=== PATIENT | female | born 1975 ===

== ENCOUNTER 2017-02-10 20:16 | Observation (INO) | payer OTHER ==
[2017-02-10 20:46] VITALS: BP 133/90; PULSE 86; RESP 18; TEMP 97.8; O2SAT 98
[2017-02-10] MEDS ORDERED: Sodium Chloride 0.9% 1,000 ML IV STA (21:03)
--- NOTE | 2017-02-10 21:15 | ED PDOC ---
HPI: General Adult Time Seen by Provider: 02/10/17 20:47 Chief Complaint (Nursing): Abdominal Pain History Per: Patient Additional Complaint(s): Pt. states since 1500 today she developed a constant progressively worsening RLQ abdominal pain. Reports also feeling nauseous but no vomiting. Denies fever , chest pain, dysuria, hematuria, fever, diarrhea, constipation. Last BM was this morning and normal. Past Medical History Reviewed: Historical Data, Nursing Documentation, Vital Signs Vital Signs: Last Vital Signs Temp 97.8 F 02/10/17 20:41 Pulse 86 02/10/17 20:41 Resp 18 02/10/17 20:41 BP 133/90 02/10/17 20:41 Pulse Ox 98 02/11/17 01:02 - Surgical History Surgical History: Cholecystectomy Other surgeries: gastric bypass - 11 years ago - Family History Family History: States: No Known Family Hx - Allergies Allergies/Adverse Reactions: Allergies Allergy/AdvReac Type Severity Reaction Status Date / Time Penicillins Allergy RASH Verified 02/10/17 20:41 Review of Systems ROS Statement: Except As Marked, All Systems Reviewed And Found Negative Gastrointestinal: Positive for: Nausea, Abdominal Pain Physical Exam - Reviewed Nursing Documentation Reviewed: Yes Vital Signs Reviewed: Yes - Physical Exam Appears: Positive for: Well, Non-toxic, No Acute Distress Head Exam: Positive for: ATRAUMATIC, NORMAL INSPECTION, NORMOCEPHALIC Skin: Positive for: Normal Color, Warm. Negative for: Rash Eye Exam: Positive for: EOMI, Normal appearance, PERRL ENT: Positive for: Normal ENT Inspection Neck: Positive for: Normal, Painless ROM Cardiovascular/Chest: Positive for: Regular Rate, Rhythm Respiratory: Positive for: CNT, Normal Breath Sounds Gastrointestinal/Abdominal: Positive for: Normal Exam, Bowel Sounds, Soft, Tenderness (RLQ abdominal tenderness). Negative for: Organomegaly, Mass, Distended, Rebound Back: Positive for: Normal Inspection. Negative for: L CVA Tenderness, R CVA Tenderness Extremity: Positive for: Normal ROM Neurologic/Psych: Positive for: Alert, Oriented - Laboratory Results Result Diagrams: 02/10/17 21:53 02/10/17 21:53 - ECG O2 Sat by Pulse Oximetry: 98 - Progress ED Course And Treament: Labs ordered. Morphine 2mg IV, zofran 4mg IV, IV NS bolus given. ED OBSERVATION Discharge: Yes Date of observation admission: 02/10/17 Time of observation admission: 21:15 - Observation admission statement Patient is being placed in observation because:: Abdominal pain - Progress Note Progress Note: 02/11/17 23:15 Pt. reports good relief of pain. 02/11/17 01:00 CT abd/pelvis: no acute findings. Case d/w Dr. Scott prior to discharge and agrees with plan. Pt. still without any pain. Discussed results with patient and states she will return to ED if pain returns or worsens. Disposition - Clinical Impression Clinical Impression: Abdominal pain in female - Patient ED Disposition Is Patient to be Admitted: No - Disposition Disposition: Routine/Home Disposition Time: 01:02 Condition: IMPROVED
[2017-02-10 22:01] LABS: BASO # 0.1 K/uL (0.0-0.2); BASO % 0.7 % (0.0-2.0); EOS % 0.1 % (0.0-4.0); LYMPH # 1.6 K/uL (1.0-4.3); LYMPH % 16.3 % (20.0-40.0); MEAN CELL VOLUME 77.6 fl (81.0-99.0); MEAN CORPUSCULAR HEMOGLOBIN 24.9 pg (27.0-31.0); MEAN CORPUSCULAR HGB CONC 32.1 g/dL (33.0-37.0); MEAN PLATELET VOLUME 8.3 fl (7.2-11.7); MONO # 0.5 K/uL (0.0-0.8); MONO % 5.4 % (0.0-10.0); NEUT # 7.6 K/uL (1.8-7.0); NEUT % 77.5 % (50.0-75.0); NRBC % 0.1 % (0.0-0.0); WHITE BLOOD COUNT 9.8 K/uL (4.8-10.8)
[2017-02-10 22:10] LABS: ALB/GLOB RATIO 1.2 (1.0-2.1); ALKALINE PHOSPHATASE 106 U/L (38-126); ALT/SGPT 27 U/L (9-52); AST/SGOT 27 U/L (14-36); BILIRUBIN,TOTAL 0.4 mg/dl (0.2-1.3); BLOOD UREA NITROGEN 11 mg/dl (7-17); CALCIUM 8.8 mg/dL (8.4-10.2); CARBON DIOXIDE 18 mmol/L (22-30); CHLORIDE 107 mmol/L (98-107); GFR AFRICAN-AMERICAN > 60; GLUCOSE,RANDOM 105 mg/dL (65-105); POTASSIUM 4.6 MMOL/L (3.6-5.0); SODIUM 136 mmol/l (132-148); TOTAL PROTEIN 7.8 G/DL (6.3-8.2)
[2017-02-10 22:51] LABS: RBC URINE 7 /hpf (0-3); URINE BILIRUBIN NEGATIVE (NEGATIVE); URINE BLOOD SMALL (NEGATIVE); URINE COLOR YELLOW (YELLOW); URINE GLUCOSE (UA) NEG (Normal); URINE KETONE 80 mg/dL (NEGATIVE); URINE LEUKOCYTE ESTERASE NEG Leu/uL (Negative); URINE PROTEIN NEGATIVE (NEGATIVE); URINE UROBILINOGEN 0.2-1.0 mg/dL (0.2-1.0); WBC URINE 1 /hpf (0-5)
[2017-02-10] MEDS ORDERED: Sodium Chloride 0.9% 50 ML IV ONE (23:10)
[2017-02-10] MEDS ORDERED: Iohexol 300 100 ML IJ ONE (23:10)
--- NOTE | 2017-02-11 16:42 | CT ---
PROCEDURE: CT Abdomen and Pelvis with Oral contrast. HISTORY: RLQ abdominal pain COMPARISON: None. TECHNIQUE: Contiguous axial images of the abdomen and pelvis. Oral contrast was administered. No IV contrast given. Coronal and Sagittal reformats generated. Radiation dose: Total exam DLP = mGy-cm. This CT exam was performed using one or more of the following dose reduction techniques: Automated exposure control, adjustment of the mA and/or kV according to patient size, and/or use of iterative reconstruction technique. FINDINGS: LOWER THORAX: Unremarkable. LIVER: Unremarkable. No gross lesion or ductal dilatation. GALLBLADDER AND BILE DUCTS: Cholecystectomy.. PANCREAS: Unremarkable. No mass. No ductal dilatation. SPLEEN: Unremarkable. No splenomegaly. ADRENALS: Unremarkable. KIDNEYS AND URETERS: Unremarkable. No stone or hydronephrosis. BLADDER: Grossly unremarkable. REPRODUCTIVE: Small right adnexal cystic lesion.. APPENDIX: Unremarkable. BOWEL: Status post gastric bypass surgery.. No obstruction. No gross mural thickening. PERITONEUM: Unremarkable. No fluid collection. No free air. LYMPH NODES: Unremarkable. No enlarged lymph nodes. VASCULATURE: Unremarkable. No aortic aneurysm. BONES: No fracture or destructive lesion. OTHER FINDINGS: None. IMPRESSION: No acute pathology.
== END 2017-02-11 01:02 | disposition home or self-care (01) ==
LOC: H.ER 20:16 → H.EROBSV 21:03
PROVIDERS: ADMIT Emergency Medicine; ATTEND Emergency Medicine
DX: R10.31 Right lower quadrant pain (principal); Z90.49 Acquired absence of other specified parts of digestive tract; Z98.84 Bariatric surgery status

== ENCOUNTER 2017-06-26 03:31 | Observation (INO) | payer OTHER ==
[2017-06-26] MEDS ORDERED: Sodium Chloride 0.9% 1,000 ML IV STA (04:47)
[2017-06-26] MEDS ORDERED: Iohexol 240 (50 ml) PO ONE (04:47)
[2017-06-26 05:00] LABS: ALB/GLOB RATIO 1.1 (1.0-2.1); ALKALINE PHOSPHATASE 117 U/L (38-126); ALT/SGPT 119 U/L (9-52); AST/SGOT 271 U/L (14-36); BILIRUBIN,TOTAL 1.1 mg/dl (0.2-1.3); BLOOD UREA NITROGEN 12 mg/dl (7-17); CALCIUM 9.2 mg/dL (8.4-10.2); CARBON DIOXIDE 19 mmol/L (22-30); CHLORIDE 107 mmol/L (98-107); GFR AFRICAN-AMERICAN > 60; GLUCOSE,RANDOM 118 mg/dL (65-105); RBC URINE 5 /hpf (0-3); SODIUM 139 mmol/l (132-148); TOTAL PROTEIN 8.1 G/DL (6.3-8.2); URINE BACTERIA RARE (<OCC); URINE BILIRUBIN NEGATIVE (NEGATIVE); URINE BLOOD SMALL (NEGATIVE); URINE COLOR YELLOW (YELLOW); URINE GLUCOSE (UA) NEG (Normal); URINE KETONE 20 mg/dL (NEGATIVE); URINE LEUKOCYTE ESTERASE NEG Leu/uL (Negative); URINE PROTEIN 30 mg/dL (NEGATIVE); URINE UROBILINOGEN 0.2-1.0 mg/dL (0.2-1.0); WBC URINE 2 /hpf (0-5)
[2017-06-26 05:04] LABS: POTASSIUM 5.8 MMOL/L (3.6-5.0)
[2017-06-26 05:07] LABS: BASO # 0.1 K/uL (0.0-0.2); BASO % 0.9 % (0.0-2.0); EOS % 0.1 % (0.0-4.0); HEMATOCRIT 38.3 % (34.0-47.0); LYMPH # 1.5 K/uL (1.0-4.3); LYMPH % 13.5 % (20.0-40.0); MEAN CORPUSCULAR HEMOGLOBIN 23.6 pg (27.0-31.0); MEAN CORPUSCULAR HGB CONC 30.6 g/dL (33.0-37.0); MEAN PLATELET VOLUME 9.1 fl (7.2-11.7); MONO # 0.7 K/uL (0.0-0.8); MONO % 6.5 % (0.0-10.0); NEUT # 8.5 K/uL (1.8-7.0); NRBC % 0.1 % (0.0-0.0); RED CELL DISTRIBUTION WIDTH 15.4 % (11.5-14.5); WHITE BLOOD COUNT 10.7 K/uL (4.8-10.8)
--- NOTE | 2017-06-26 05:35 | ED PDOC ---
HPI: Abdomen Time Seen by Provider: 06/26/17 04:02 Chief Complaint (Nursing): Abdominal Pain Chief Complaint (Provider): Abdominal Pain History Per: Patient History/Exam Limitations: no limitations Onset/Duration Of Symptoms: Hrs (7 hours) Outside of [place] travel?: No Current Symptoms Are (Timing): Still Present Severity: Moderate Location Of Pain/Discomfort: RLQ Quality Of Discomfort: "Pain" Associated Symptoms: Nausea. denies: Fever, Chills, Vomiting, Diarrhea, Loss Of Appetite, Back Pain, Chest Pain, Constipation, Urinary Symptoms Additional History Per: Patient Additional Complaint(s): 41 y/o female complaining of RLQ abdominal pain for the last 7 hours associated with nausea. She denies fever, chills, vomiting, or other complaint. She was seen here for the same in January 2017 and reports that her pain is identical. Work up at that time was inconclusive. Past Medical History Vital Signs: Last Vital Signs Temp 98.0 F 06/26/17 04:20 Pulse 86 06/26/17 04:20 Resp 16 06/26/17 04:20 BP 132/72 06/26/17 04:20 Pulse Ox 100 06/26/17 06:39 - Medical History PMH: Gall Bladder Disease - Surgical History Surgical History: Cholecystectomy, Other surgeries: Tummy tuck, gastric bypass - Family History Family History: States: No Known Family Hx - Social History Current smoker - smoking cessation education provided: No Ex-Smoker (has not smoked in the last 12 months): No Alcohol: None Drugs: Denies - Allergies Allergies/Adverse Reactions: Allergies Allergy/AdvReac Type Severity Reaction Status Date / Time Penicillins Allergy RASH Verified 02/10/17 20:41 Review of Systems ROS Statement: Except As Marked, All Systems Reviewed And Found Negative Gastrointestinal: Positive for: Nausea, Abdominal Pain Physical Exam - Reviewed Nursing Documentation Reviewed: Yes Vital Signs Reviewed: Yes - Physical Exam Appears: Positive for: Well, Non-toxic, No Acute Distress Head Exam: Positive for: ATRAUMATIC, NORMAL INSPECTION, NORMOCEPHALIC Skin: Positive for: Normal Color, Warm, DRY Eye Exam: Positive for: EOMI, Normal appearance, PERRL ENT: Positive for: Normal ENT Inspection Neck: Positive for: Normal, Painless ROM Cardiovascular/Chest: Positive for: Regular Rate, Rhythm Respiratory: Positive for: CNT, Normal Breath Sounds Gastrointestinal/Abdominal: Positive for: Normal Exam, Bowel Sounds, Soft, Tenderness (RLQ and right midepigastric) Back: Positive for: Normal Inspection Extremity: Positive for: Normal ROM Neurologic/Psych: Positive for: Alert, Oriented - Laboratory Results Result Diagrams: 06/26/17 04:48 06/26/17 04:48 - ECG O2 Sat by Pulse Oximetry: 100 (RA) Pulse Ox Interpretation: Normal Medical Decision Making Medical Decision Making: Impression: abdominal pain Plan: - Labs, - CT Abdomen - Toradol - Zofran Labs significant for elevated LFTs. Scribe Attestation: Documented by Alessia Bowen, acting as a scribe for Alessia Bowen. Provider Scribe Attestation: All medical record entries made by the Scribe were at my direction and personally dictated by me. I have reviewed the chart and agree that the record accurately reflects my personal performance of the history, physical exam, medical decision making, and the department course for this patient. I have also personally directed, reviewed, and agree with the discharge instructions and disposition. ED OBSERVATION Date of observation admission: 06/26/17 Time of observation admission: 05:30 - Observation admission statement Patient is being placed in observation because:: Pain and nausea - Goals of Observation Goals of observation are:: Symptom management - Progress Note Progress Note: 05:30: patient placed in ED obs 07:00: TOS pending CT Abdomen and reevaluation Disposition - Disposition
--- NOTE | 2017-06-26 07:14 | ED PDOC ---
- Laboratory Results Result Diagrams: 06/26/17 04:48 06/26/17 04:48 - ECG O2 Sat by Pulse Oximetry: 100 (RA) Pulse Ox Interpretation: Normal <Rhoda Santos - Last Filed: 06/26/17 08:58> - Laboratory Results Result Diagrams: 06/26/17 04:48 06/26/17 04:48 <Ruben Galvan E - Last Filed: 06/28/17 10:13> Medical Decision Making <Rhoda Santos F - Last Filed: 06/26/17 08:58> <Ruben Galvan E - Last Filed: 06/28/17 10:13> Medical Decision Makin:00 Patient was signed out to me by Charlotte Chavez MD pending CT scan, reevaluation and final disposition. 08:29 CT abd/pelvis FINDINGS: LOWER THORAX: Limited bibasilar diet dependent atelectasis identified. LIVER: The hepatic flexure is interposed between the right abdominal wall/lower right chest wall and the right lobe liver with the liver unremarkable appearing. GALLBLADDER AND BILE DUCTS: Surgically absent gallbladder. PANCREAS: Unremarkable. No gross lesion or ductal dilatation. SPLEEN: Unremarkable. ADRENALS: Unremarkable. No mass. KIDNEYS AND URETERS: Unremarkable. No hydronephrosis. No solid mass. VASCULATURE: Unremarkable. No aortic aneurysm. BOWEL: Status post gastric bypass procedure. No bowel obstruction pattern appreciable. Under opacified small bowel loops are unremarkable with opacified distal small bowel and colon grossly nonfocal as well. Surgical anastomoses appear unremarkable. APPENDIX: The appendix not clearly identified. There is no CT pattern suggest appendicitis nevertheless at this time. PERITONEUM: Unremarkable. No free fluid. No free air. LYMPH NODES: Unremarkable. No enlarged lymph nodes. BLADDER: Unremarkable. REPRODUCTIVE: Inhomogeneous enhancement of the uterus may indicate underlying fibroid uterine disease. Pelvic ultrasonography may be useful for follow-up. A collapsing left adnexal cyst/follicle is appreciated. BONES: There is a small lucent lesion which appears pre nonaggressive in the left iliac bone anteriorly. OTHER FINDINGS: None. IMPRESSION: 1. Nonacute abdomen pelvis CT. The appendix not identified however there is no CT evidence to suggest appendicitis. 2. Prior gastric bypass procedure. No bowel obstruction or gastric outlet obstruction appreciated. 3. Prior cholecystectomy. 4. Likely uterine fibroids. Collapsing left adnexal cyst or follicle suggested. 08:[address] findings and labs including elevated LFTs. Pt will be given copy of labs and CT report, pt has appt with PMD Dr. Conte in 2 days, to take copies and informed of need for GI referral. Scribe Attestation: Documented by Rhoda Burgos, acting as a scribe for Rhoda Santos MD. Provider Scribe Attestation: All medical record entries made by the Scribe were at my direction and personally dictated by me. I have reviewed the chart and agree that the record accurately reflects my personal performance of the history, physical exam, medical decision making, and the department course for this patient. I have also personally directed, reviewed, and agree with the discharge instructions and disposition. (Rhoda Santos) Disposition - POA Present On Arrival: None - Disposition Disposition: Routine/Home Disposition Time: 08:50 <Rhoda Santos - Last Filed: 06/26/17 08:58> <Ruben Galvan - Last Filed: 06/28/17 10:13> - Clinical Impression Clinical Impression: Abdominal pain, Elevated liver enzymes - Disposition Condition: STABLE Addendum <Rhoda Santos - Last Filed: 06/26/17 08:58> <Ruben Galvan - Last Filed: 06/28/17 10:13> Addendum: 06/28/17 10:13 Urine C&S indicate pt. has UTI. No abx given. Called and message left. 2nd attempt to be made. (Ruben Galvan)
[2017-06-26] MEDS ORDERED: Iohexol 300 100 ML IJ ONE (07:56)
[2017-06-26] MEDS ORDERED: Sodium Chloride 0.9% 50 ML IV ONE (07:56)
--- NOTE | 2017-06-26 08:30 | CT ---
PROCEDURE: CT Abdomen and Pelvis with contrast HISTORY: abdominal pain COMPARISON: None. TECHNIQUE: Contrast dose: Omnipaque 300, 95 cc Radiation dose: Total exam DLP = 973.42 mGy-cm. This CT exam was performed using one or more of the following dose reduction techniques: Automated exposure control, adjustment of the mA and/or kV according to patient size, and/or use of iterative reconstruction technique. FINDINGS: LOWER THORAX: Limited bibasilar diet dependent atelectasis identified. LIVER: The hepatic flexure is interposed between the right abdominal wall/lower right chest wall and the right lobe liver with the liver unremarkable appearing. GALLBLADDER AND BILE DUCTS: Surgically absent gallbladder. PANCREAS: Unremarkable. No gross lesion or ductal dilatation. SPLEEN: Unremarkable. ADRENALS: Unremarkable. No mass. KIDNEYS AND URETERS: Unremarkable. No hydronephrosis. No solid mass. VASCULATURE: Unremarkable. No aortic aneurysm. BOWEL: Status post gastric bypass procedure. No bowel obstruction pattern appreciable. Under opacified small bowel loops are unremarkable with opacified distal small bowel and colon grossly nonfocal as well. Surgical anastomoses appear unremarkable. APPENDIX: The appendix not clearly identified. There is no CT pattern suggest appendicitis nevertheless at this time. PERITONEUM: Unremarkable. No free fluid. No free air. LYMPH NODES: Unremarkable. No enlarged lymph nodes. BLADDER: Unremarkable. REPRODUCTIVE: Inhomogeneous enhancement of the uterus may indicate underlying fibroid uterine disease. Pelvic ultrasonography may be useful for follow-up. A collapsing left adnexal cyst/follicle is appreciated. BONES: There is a small lucent lesion which appears pre nonaggressive in the left iliac bone anteriorly. OTHER FINDINGS: None. IMPRESSION: 1. Nonacute abdomen pelvis CT. The appendix not identified however there is no CT evidence to suggest appendicitis. 2. Prior gastric bypass procedure. No bowel obstruction or gastric outlet obstruction appreciated. 3. Prior cholecystectomy. 4. Likely uterine fibroids. Collapsing left adnexal cyst or follicle suggested.
[2017-06-26 09:05] VITALS: BP 159/96; PULSE 74; RESP 17; TEMP 98.5; O2SAT 99
== END 2017-06-26 09:12 | disposition home or self-care (01) ==
LOC: H.ER 03:31 → H.EROBSV 05:30
PROVIDERS: ADMIT Emergency Medicine; ATTEND Emergency Medicine
DX: D25.9 Leiomyoma of uterus, unspecified (principal); N39.0 Urinary tract infection, site not specified; B96.20 Unspecified Escherichia coli [E. coli] as the cause of diseases classified elsewhere; R74.8 Abnormal levels of other serum enzymes; Z98.84 Bariatric surgery status; Z90.49 Acquired absence of other specified parts of digestive tract; Z88.0 Allergy status to penicillin
CPT/HCPCS: 74177; 80053; 81003; 81025; 85025; 87086; 87181; 96360; 99283; G0378; J1885; J2405; J7040; Q9966; Q9967